=== PATIENT | male | born 1945 | race Caucasian/White ===

== ENCOUNTER 2019-05-28 13:14 | Outpatient (CLI) | payer MEDICARE, SELFPAY ==
--- NOTE | ~2019-05-28 | XR_ITS ---
EXAMINATION: XR abdomen/kub 1V INDICATION: Follow-up kidney stone TECHNIQUE: Supine views of the abdomen were obtained on 2 radiographs. COMPARISON: 12/07/2017 FINDINGS: Bowel contents project over the kidneys limiting sensitivity for renal stones. A stable 5 mm calcification projects in the lower pole of the right kidney. No stones are identified along the e xpected courses of the ureters or within the urinary bladder. Surgical clips in the right upper quadr ant are likely from prior cholecystectomy. There is moderate to severe lower lumbar spondylosis. IMPRESSION: 1. Stable right nephrolithiasis. Reviewed, dictated and finalized at location A. ATIONAL COMMUNICATION CHIEF
== END 2019-05-28 13:15 | disposition home or self-care (01) ==
PROVIDERS: Visit Provider Urology
DX: N20.0 Calculus of kidney (principal)
CPT/HCPCS: 74018

== ENCOUNTER 2020-02-17 15:04 | Outpatient (CLI) | payer MEDICARE, SELFPAY ==
--- NOTE | ~2020-02-17 | XR_ITS ---
EXAMINATION: XR abdomen/kub 1V DATE: 02/17/2020 15:33 INDICATION: Right renal stone. TECHNIQUE: A supine view of the abdomen on 2 radiographs was obtained. COMPARISON: Abdomen radiographs 05/28/2019 FINDINGS: There no dilated loops of bowel. The kidneys are obscured by bowel. There is a 7 mm stone i n right kidney. There are phleboliths in the pelvis. There are approximately 4 stones in left kidney measuring up to 3 mm. Surgical clips in the right upper quadrant are likely from cholecystectomy. Med alysia sternotomy wires and mediastinal surgical clips are seen, likely from prior coronary artery bypas s grafting. Partially visualized is a pacer wire in the heart. IMPRESSION: 1. Bilateral kidney stones. Reviewed, dictated and finalized at location A. O VIDEO REPAIRER IMPRESSION: 1. Bilateral kidney stones.
== END 2020-02-17 15:05 | disposition home or self-care (01) ==
PROVIDERS: PCP Family Medicine; Visit Provider Nurse Practitioner Adult Health
DX: N20.0 Calculus of kidney (principal)
CPT/HCPCS: 74018

== ENCOUNTER 2020-02-27 13:08 | Outpatient (CLI) | payer MEDICARE, SELFPAY ==
[2020-02-27 14:03] LABS: Partial Thromboplastin Time 29.3 SECONDS (22.3-36.8); Prothrombin Time 13.4 Seconds (11.1-14.7)
[2020-02-27 14:04] LABS: Anion Gap 8 mmol/L (8-16); Blood Urea Nitrogen 17 mg/dL (9-20); Calcium 10.5 mg/dL (8.4-10.2); Carbon Dioxide 25 mmol/L (22-30); Chloride 110 mmol/L (98-107); Estimated Glomerular Filt Rate 40; Glucose 115 mg/dL (75-110); Potassium 3.7 mmol/L (3.4-5.0); Sodium 143 mmol/L (137-145)
== END 2020-02-27 13:09 | disposition home or self-care (01) ==
LOC: ANHSURGERY 13:11
PROVIDERS: Anesthesiology; PCP Family Medicine; Visit Provider Urology
DX: N20.0 Calculus of kidney (principal); Z01.818 Encounter for other preprocedural examination; Z79.899 Other long term (current) drug therapy
CPT/HCPCS: 36415; 80048; 85610; 85730; 87086; 87088

== ENCOUNTER 2020-03-02 02:57 | Outpatient (CLI) | payer MEDICARE, SELFPAY ==
[2020-03-02 19:47] LABS: SARS-CoV-2 RNA PCR Negative
== END 2020-03-02 02:58 | disposition home or self-care (01) ==
LOC: ANHCOVIDDT 02:58
PROVIDERS: PCP Family Medicine; Visit Provider Urology
DX: Z01.818 Encounter for other preprocedural examination (principal); Z20.828 Contact with and (suspected) exposure to other viral communicable diseases
CPT/HCPCS: 87635; C9803; U0003

== ENCOUNTER 2020-03-05 04:13 | Day surgery (SDC) | payer MEDICARE, SELFPAY ==
[2020-02-24 14:57] VITALS: BMI 31.2
[2020-03-05] VITALS (8 sets, daily range): BP systolic 144–169; BP diastolic 74–90; PULSE 59–60; RESP 13–20; TEMP 36.1–36.6; O2SAT 97–100
--- NOTE | ~2020-03-05 | XR_ITS ---
EXAMINATION: XR abdomen/kub 1V DATE: 03/05/2020 06:09 INDICATION: Kidney stone. TECHNIQUE: A supine view of the abdomen on 2 radiographs was obtained. COMPARISON: Abdomen radiograph 02/17/2020 FINDINGS: There are no dilated loops of bowel. There are 2 stones in right kidney with the larger devorah suring 6 mm. There are 3 stones in left kidney with the largest measuring 3 mm. Surgical clips in the right upper quadrant are likely from cholecystectomy. IMPRESSION: 1. Bilateral kidney stones. Reviewed, dictated and finalized at location A. ESS COACH IMPRESSION: 1. Bilateral kidney stones.
--- NOTE | 2020-03-05 06:09 | WPDHPUPDATE1 ---
History and Physical Update Update Date/Time: 03/05/20 06:09 History and Physical has been reviewed, including an updated exam of the patient. There are NO changes in the patient's condition. Risks, benefits, and alternatives have been discussed and questions answered. Patient agrees to proceed with procedure.
[2020-03-05] MEDS: LACTATED RINGERS 1,000 ML 30 ML IV CONT ×2 (06:32→08:50)
[2020-03-05 07:14] LABS: Hematocrit 43.6 % (42.0-52.0); Hemoglobin 14.5 g/dL (14.0-18.0)
--- NOTE | 2020-03-05 07:21 | WPDANESEPPF ---
Anes - Initial Pre Proc Eval Procedure: Operation Date: 03/05/20 07:30 Proposed Procedures p Right Renal Extracorporeal Shock Wave Lithotripsy - Chalino Madrid MD Date/Time: 03/05/20 07:21 Surgeon: Chalino Madrid MD Pre Op Diagnosis: Right Renal Stone Patient Data Age: 75 Gender: M Height: 6 ft Weight: 109.4 kg Last Vital Signs Temp 97.9 F 03/05/20 06:15 Pulse 59 L 03/05/20 06:15 Resp 20 03/05/20 06:15 BP 149/74 H 03/05/20 06:15 Pulse Ox 97 03/05/20 06:15 Allergies Allergy/AdvReac Type Severity Reaction Status Date / Time Iodinated Contrast Media Allergy Intermediate Rash Verified 03/05/20 06:49 Home Medications Medication Instructions Recorded Confirmed Type allopurinol 100 mg PO DAILY 02/24/20 02/24/20 History amlodipine 5 mg PO DAILY 02/24/20 03/05/20 History aspirin [Aspir-81] 81 mg PO DAILY 02/24/20 02/24/20 History atorvastatin [Lipitor] 40 mg PO HS 02/24/20 02/24/20 History carvedilol 6.25 mg PO BID 02/24/20 03/05/20 History cholecalciferol (vitamin D3) 50 mcg PO DAILY 02/24/20 02/24/20 History donepezil 10 mg PO HS 02/24/20 02/24/20 History ferrous sulfate 325 mg PO DAILY 02/24/20 02/24/20 History finasteride 5 mg PO HS 02/24/20 02/24/20 History furosemide See Rx Instructions .ROUTE .COMPLEX 02/24/20 02/24/20 History memantine 5 mg PO QAM 02/24/20 02/24/20 History memantine 10 mg PO QPM 02/24/20 02/24/20 History potassium chloride See Rx Instructions .ROUTE .COMPLEX 02/24/20 02/24/20 History ranolazine 500 mg PO Q12H 02/24/20 02/24/20 History sertraline 50 mg PO DAILY 02/24/20 03/05/20 History tamsulosin 0.4 mg PO HS 02/24/20 02/24/20 History cephalexin 500 mg PO Q8H #9 cap 03/05/20 Rx hydrocodone-acetaminophen 1 - 2 tablet PO Q6H PRN #20 tablet 03/05/20 Rx Laboratory Tests 03/05/20 06:31 Hgb 14.5 g/dL g/dL (14.0-18.0) Hct 43.6 % % (42.0-52.0) Patient hx anesthesia problems: none Family hx anesthesia problems: none PMFSH Past Medical History Medical History (Updated 03/04/20 @ 11:33 by Sherman Dodson MD) CAD (coronary artery disease) Hyperlipidemia Hypertension Pacemaker Surgical History Surgical History (Updated 03/04/20 @ 11:33 by Sherman Dodson MD) S/P CABG x 3 Social History Social History Smoking packs per day: 1 Smoking cigarettes per day: 20.0 Years smoked: 10 Smoking pack-years: 10.00 Smoking end date: 02/24/08 Living arrangements: with family Spiritual care concerns: No Anes - Eval Final PreProcedure Day of Procedure 03/05/20 07:21 Patient weight: normal Heart: regular rate and rhythm Lungs: clear to auscultation Airway: Mallampati scale class II Neurological: alert and oriented Last oral intake: >/= 8 hours ASA classification: III Emergent: no Anesthetic plan: proceed Anesthesia type and monitoring: general LMA and standard monitoring Informed Consent: The patient's anesthetic plan and its attendant risks and benefits were discussed with the patient/family/POA. Questions were solicited and answers provided to the satisfaction of the patient/family/POA.
[2020-03-05] MEDS: ceFAZolin 2 GM/D5W 50 ML 2 GM/50 ML BAG IVPB (07:28)
--- NOTE | 2020-03-05 07:42 | PM.PROC ---
Procedure Note - Detailed Date of procedure: 03/05/20 Pre-op diagnosis: Right Renal Stone Post-op diagnosis: same Procedure performed: Right ESWL Description of procedure: The patient was brought to the operative suite where he was placed in the supine position on the Dornier lithotripsy table. The focal point of the lithotripter was placed at a 7mm right renal calculus. A total of 2500 shocks were delivered at a power setting of 4. There appeared to be good fragmentation of the stone. The patient tolerated the procedure well and was taken to the recovery room in good condition. Anesthesia: GLMA Surgeon: Chalino Madrid MD Estimated blood loss (mL): 0 Drains: No Packing: No Pathology: none sent Complications: No immediate complications Condition: stable Disposition: PACU
--- NOTE | 2020-03-05 09:19 | SUR.PHASEI ---
PT AWAKE AND ALERT. TALKATIVE. DENIES PAIN. READY FOR PO FLUIDS.
== END 2020-03-05 10:05 | disposition home or self-care (01) ==
PROVIDERS: Anesthesiology; PCP Family Medicine; Visit Provider Urology
PROC: (CPT 50590; principal; 2020-03-05 07:30)
DX: N20.0 Calculus of kidney (principal); I10 Essential (primary) hypertension; I25.10 Atherosclerotic heart disease of native coronary artery without angina pectoris; E78.5 Hyperlipidemia, unspecified; Z95.0 Presence of cardiac pacemaker; Z87.891 Personal history of nicotine dependence
CPT/HCPCS: 50590; 36415; 74018; 80048; 85014; 85018; 85610; 85730; 87086; 87088; C9803; J0690; J2370; J2704; J3010; J7120; U0003

== ENCOUNTER 2020-03-18 12:07 | Outpatient (CLI) | payer MEDICARE, SELFPAY ==
--- NOTE | ~2020-03-18 | XR_ITS ---
XR abdomen/kub 1V 03/18/2020 12:34 Indication: Right renal stone Procedure: KUB Comparison: 03/05/2020 Findings: There is bilateral renal stones. There are cholecystectomy clips. Bowel gas pattern nonobst ructive. Moderate lumbar spondylosis. Moderate osteoarthritis of the hips. Impression: 1: Bilateral nephrolithiasis. Reviewed, dictated and finalized at location B. CRUSHING DUST COLLECTOR Impression: 1: Bilateral nephrolithiasis.
== END 2020-03-18 12:08 | disposition home or self-care (01) ==
PROVIDERS: PCP Family Medicine; Visit Provider Nurse Practitioner Adult Health
DX: N20.0 Calculus of kidney (principal)
CPT/HCPCS: 74018